=== PATIENT | male | born 1980 | race Caucasian/White ===

== ENCOUNTER → 2017-02-24 | Day surgery (SDC) | payer BC ==
[~2017-02-24] MED LIST: BACTRIM DS1 TAB PO; COLACE100 MG PO; NORCO 5-325 TA1 EACH PO
--- NOTE | ~2017-02-24 | OR ---
PATIENT'S NAME: HU [facility] AGE: 36 Y [address] ROOM: [place] [address] LOCATION: [facility] [place] ADMIT DATE: 02/24/2017 OR/Procedure Report DISCHARGE DATE: FAMILY PHYSICIAN: PHYSICIAN, NO ATTENDING PHYSICIAN: ANURAG MOY SURGEON: Anurag Moy MD BANK VAULT CLERK: None. DATE OF PROCEDURE: 02/24/2017 PREOPERATIVE DIAGNOSIS: Right testicular pain. POSTOPERATIVE DIAGNOSIS: Right testicular pain. ANESTHESIA ADMINISTERED: General endotracheal anesthesia. OPERATIONS PERFORMED: 1. Scrotal exploration. 2. Bilateral testicular fixation. INDICATIONS FOR PROCEDURE: The patient is a pleasant 36-year-old male who had presented with acute onset of right testicular pain and had history as well as physical exam findings concerning for right testicular torsion. The patient was explained the risks, benefits, indications, and alternatives to the above procedure, wished to proceed, and consented freely. DESCRIPTION OF OPERATION: The patient was brought back to the operating room where he was placed on the OR table in the supine position. A surgical time- out was called where patient identification, surgical site, and procedure were then verified. We also did verify that the patient received an IV cephalosporin antibiotic within 30 minutes of beginning the procedure. The patient then underwent successful administration of general endotracheal anesthesia. The patient was then kept in the supine position where his genital area was then clipped, prepped, and draped in the usual sterile fashion. I began by making an incision in the midline along his scrotal raphe approximately 4 cm in length. I then dissected down through the dartos tissues until I was able to deliver the right testicle. I also opened up the tunica vaginalis, completely delivering the right testicle. The right testicle did appear to have good pink and normal color/appearance to it, and there was no evidence of any twists along the cord. This finding was consistent with no testicular torsion with possible right testicular detorsion while the patient was sedated or during transfer from the outside hospital. There were no visible testicular abnormalities or testicular masses noted. I then turned my attention to his left testicle, dissected down through the dartos tissue, delivered the left testicle, and opened up the tunica layer. The left testicle did appear normal with no concerning findings noted. The PATIENT'S NAME: HU [facility] AGE: 36 Y [address] ROOM: [place] [address] LOCATION: [facility] [place] ADMIT DATE: 02/24/2017 OR/Procedure Report DISCHARGE DATE: FAMILY PHYSICIAN: PHYSICIAN, NO ATTENDING PHYSICIAN: ANURAG MOY testicle had no evidence of testicular mass and had good color and appearance to it. There were no twists along the cord. I then performed bilateral testicular fixation utilizing a 5-0 PDS suture in a 3-point fashion after placing the testicle back in its anatomic position. This was performed first on the left side and then over on the right testicle. Of note, I did perform a testicular cord block bilaterally and then closed the dartos layer using a running 3-0 Vicryl suture. Local anesthetic was also instilled into the aamir- incisional tissues for a total of 10 mL of 0.25% Marcaine plain local anesthetic. I then closed the skin in a running fashion using a chromic suture. Bacitracin ointment was then applied to the skin incision along with fluffs and then a scrotal support. The patient did tolerate the procedure well. The patient was then awoken from general anesthesia where he was then extubated, transferred to the recovery bed, and transported to the recovery room in good condition. COMPLICATIONS: None. DRAINS: None. SPECIMENS: None. ESTIMATED BLOOD LOSS: Less than 10 mL. FOLLOWUP PLAN: We will plan to have the patient follow back up in [facility]rology Clinic in 3 months for routine postoperative followup. ANURAG MOY MD GP/modl /[id number] CC: Angel Gallegos MD d: 02/24/17 1833 t: 02/27/17 1009, OPERATIVE SUMMARY
--- NOTE | ~2017-02-24 | HP ---
PATIENT'S NAME: HU [facility] AGE: 36 Y [address] ROOM: [place] [address] LOCATION: [facility] [place] ADMIT DATE: 02/24/2017 History & Physical DISCHARGE DATE: FAMILY PHYSICIAN: PHYSICIAN, NO ATTENDING PHYSICIAN: ANURAG CARTWRIGHT DATE OF SERVICE: 02/24/2017 CHIEF COMPLAINT: Right testicular pain. HISTORY OF PRESENT ILLNESS: The patient is a 36-year-old male who had presented to the outside hospital emergency room with acute onset of right testicular pain which started around 6:30 this morning. Given suspicion for right testicular torsion, the patient was then urgently transferred to [facility] for further evaluation and care. The patient denies any trauma or prior episodes of similar testicular pain. The patient did have some nausea, but no vomiting. The patient denies any fevers or chills. The patient has not had any voiding complaints. PAST MEDICAL HISTORY: He denies any significant past medical history. PAST SURGICAL HISTORY: He denies any prior surgery. ALLERGIES: NO KNOWN DRUG ALLERGIES. 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 FAMILY HISTORY: Noncontributory. REVIEW OF SYSTEMS: A full 10+ point review of systems was performed with pertinent positive and negative findings included in the History of Present Illness. All other systems were reviewed and are otherwise negative. MEDICATIONS: He does not take any medications. PHYSICAL EXAMINATION: PATIENT'S NAME: HU [facility] AGE: 36 Y [address] ROOM: [place] [address] LOCATION: [facility] [place] ADMIT DATE: 02/24/2017 History & Physical DISCHARGE DATE: FAMILY PHYSICIAN: PHYSICIAN, NO ATTENDING PHYSICIAN: ANURAG CARTWRIGHT VITAL SIGNS: Stable. CONSTITUTIONAL: No acute distress. The patient is awake and oriented. HEENT: Extraocular muscles intact. Mucous membranes moist. No drainage per ears or nose. CARDIAC: Good peripheral perfusion. RESPIRATORY: No audible wheezing. ABDOMEN: Soft, nontender, and nondistended. GENITOURINARY: Normal circumcised phallus with no penile plaques, masses, or abnormalities noted. His meatus is normal in size and location with no urethral discharge. Scrotum: Normal rugation. No sebaceous cyst noted. His right testicle is more tender to palpation, his right spermatic cord does appear to have a twist, and that testicle is somewhat high-riding in nature with some associated swelling. His left testicle is palpably normal with no testicular masses noted. PSYCHIATRIC: Normal affect, and answers questions appropriately. MUSCULOSKELETAL: Moves all extremities. NEUROLOGIC: No focal deficits noted. HEMATOLOGIC: No active sites of bruising or bleeding. IMPRESSION: Right testicular pain. PLAN: I had a long discussion today with the patient regarding my findings, and given the high suspicion for right testicular torsion, I recommended urgent scrotal exploration. We also discussed possible right testicular detorsion with bilateral testicular fixation. We also discussed the possibility of right orchiectomy if a nonviable testicle is found. I discussed the risks, benefits, indications, and alternatives to the above procedure with the patient. The patient wished to proceed and consented freely. ANURAG CARTWRIGHT MD GP/modl /[id number] D: 433 T: HISTORY & PHYSICAL
== END | disposition disaster alternative care site (69) ==
LOC: GMED 12:06 → GSDC 12:26
PROC: 0VSC0ZZ Reposition Bilateral Testes, Open Approach (ICD-10-PCS; principal; 2017-02-24)
DX: N50.811 Right testicular pain (principal)
CPT/HCPCS: J0690; J7120

== ENCOUNTER 2017-03-19 04:54 | Emergency (ER) | payer BC ==
--- NOTE | ~2017-03-19 | ER ---
PATIENT'S NAME: OLLIE [facility] AGE: 36 Y [address] ROOM: [place] [address] LOCATION: [facility] ADMIT DATE: 03/19/2017 ER/Outpatient Report DISCHARGE DATE: 03/19/2017 FAMILY PHYSICIAN: PHYSICIAN, NO ATTENDING PHYSICIAN: Karson Duque CHIEF COMPLAINT: Scrotal pain. HISTORY OF PRESENT ILLNESS: Around 2:22 this morning, Mr. Saini woke up with scrotal pain. It feels like the same pain he had a few weeks ago when he was seen by Dr. Moy emergently for possible testicular torsion and received bilateral orchiopexy. The pain does not radiate. It lasted for about an hour and then markedly resolved on its own. The patient was seen initially by Dr. Duque in the emergency department, and I received hand off from him at 0600 hours. At that time, the patient's urinalysis was notable for some blood, but no obvious other etiology. Ultrasound was obtained and the testicles appeared normal. The source of the blood is unclear. He does not notice any gross blood. He has no back or flank pain. I do not think that it is consistent with a stone currently. The pain is only isolated to the scrotum. Based on these exams and the patient's pain, I did discuss the case with Dr. Moy, urologist. He is saying this is most likely epididymitis based on his recollection of the case. He has recommended antibiotics and followup with PCP as needed and no change to surgical followup. I discussed the case with the patient at bedside extensively. He states he had significant amount of pain medication. I explained to him that the likelihood that his testicles could in fact twist again is extremely unlikely. We did discuss the possibility of the torsion of appendix testis versus epididymitis, which would explain his pain. He is otherwise doing okay currently and feels well. No interventions were offered here from a pain standpoint. He was given a gram of Rocephin IM. We will have him start on 10 days of Bactrim. All questions were answered, and the patient was discharged in stable condition. Return if needed. MD SAPPHIRE GALICIA/modl /[id number] d: t: 03/19/17 0755, OUTPATIENT REPORT
--- NOTE | ~2017-03-19 | ER ---
PATIENT'S NAME: [facility] AGE: 36 Y [address] ROOM: [place] [address] LOCATION: [facility] ADMIT DATE: 03/19/2017 ER/Outpatient Report DISCHARGE DATE: 03/19/2017 FAMILY PHYSICIAN: PHYSICIAN, NO ATTENDING PHYSICIAN: Karson Duque Time of Arrival: 0454 hours. Time of Evaluation: 0457 hours. CHIEF COMPLAINT: Testicle pain. HISTORY OF PRESENT ILLNESS: The patient is a 36-year-old male, who presents to the emergency department today with chief complaint of testicle pain. It woke him from sleep at approximately 2:20 this morning. He denies any urinary frequency, urgency, or painful urination. The patient underwent bilateral testicular fixation by Dr. Moy on 02/24/2017. He has not had any issue since until he woke up this morning. His max pain is 6/10. It is currently 2/10 in severity. PAST MEDICAL HISTORY: None. PAST SURGICAL HISTORY: Testicular fixation bilaterally. SOCIAL HISTORY: The patient denies any tobacco use. Reports occasional alcohol use. Denies any illicit drug use. ALLERGIES: NO KNOWN DRUG ALLERGIES. MEDICATIONS: None. PRIMARY CARE DOCTOR: Toan Moy MD. REVIEW OF SYSTEMS: All systems are reviewed by myself and are negative with the exception of those discussed in HPI and past medical history. PHYSICAL EXAMINATION: VITAL SIGNS: Weight 109 kg, blood pressure 137/97, pulse 68, respiratory rate [facility] 36 Y [address] ROOM: [place] [address] LOCATION: [facility] ADMIT DATE: 03/19/2017 ER/Outpatient Report DISCHARGE DATE: 03/19/2017 FAMILY PHYSICIAN: PHYSICIAN, NO ATTENDING PHYSICIAN: Karson Duque 16, temperature 97.2, oxygen saturation 96% on room air. GENERAL: The patient is a 36-year-old male, who appears stated age, in no acute distress at this time. HEENT: Head is normocephalic and atraumatic. Pupils are equal, round, and reactive to light and accommodation. Extraocular motions are intact. NECK: Supple. There is no nuchal rigidity. CARDIOVASCULAR: Regular rate and rhythm. No murmurs, rubs, or gallops. LUNGS: Clear to auscultation bilaterally. No wheezes, rales, or rhonchi. : The patient does have bilateral testicles with mild tenderness to palpation on the right testicle. There are no hernias palpated. SKIN: Warm and dry. There are no rashes or lesions noted. LABORATORY DATA AND X-RAYS: Urinalysis is obtained and does reveal 25 leukocyte esterase, 30 protein, 250 blood, 5-100 rbc's, negative bacteria. An ultrasound of the testicle is pending. IMPRESSION: 1. Scrotal pain. 2. Initial visit. EMERGENCY DEPARTMENT COURSE: The patient was brought back to the examination room. Seen and evaluated by myself. Laboratory analysis and imaging are obtained as described above. Testicular ultrasound is pending at the time of transfer of care. I did discuss the case with Dr. Culver. He will follow up on the ultrasound and discuss with Dr. Moy, the patient's surgeon. Please see his dictation. DISPOSITION: Per Dr. Culver. DO ALLYSON PRESCOTT/katel /[id number] d: 03/20/17 0014 t: 03/21/172006, OUTPATIENT REPORT
[2017-03-19 05:15] LABS: BILIRUBIN URINE NEGATIVE (NEGATIVE); BLOOD URINE 250 /UL (NEGATIVE); GLUCOSE URINE NEGATIVE (NEGATIVE); KETONE URINE NEGATIVE (NEGATIVE); LEUKOCYTES URINE 25 /UL (NEGATIVE); NITRITE URINE NEGATIVE (NEGATIVE); PROTEIN URINE 30 mg/dL (NEGATIVE); SPEC GRAVITY URINE 1.025 (1.003-1.035); TURBIDITY URINE 1+ (CLEAR); UROBILINOGEN URINE NORMAL (NORMAL)
[2017-03-19 05:22] LABS: COLOR URINE AMBER (YELLOW)
[2017-03-19 05:24] LABS: BACTERIA URINE NEGATIVE (NEGATIVE); EPITHELIAL URINE 0-2 #/HPF (NEGATIVE); HYALINE CAST URINE RARE #/LPF (NEGATIVE); MUCUS URINE 2+ (NEGATIVE); RBC URINE 50-100 #/HPF (NEGATIVE); WBC URINE 0-2 #/HPF (NEGATIVE)
== END 2017-03-19 06:52 | disposition disaster alternative care site (69) ==
LOC: GMED 04:54
PROVIDERS: Emergency Medicine
DX: N50.82 Scrotal pain (principal); Z98.890 Other specified postprocedural states
CPT/HCPCS: J0696